=== PATIENT | male | born 1960 | race Caucasian/White ===

== ENCOUNTER 2022-05-01 16:06 | Emergency (ER) | payer BC, SELFPAY ==
[2022-05-01 16:28] VITALS: BP 144/78; PULSE 90; RESP 18; TEMP 36.7; O2SAT 99; BMI 36.5
--- NOTE | 2022-05-01 16:33 | CRLHL7_ITS ---
For Patients: As a result of the Century Cures Act, medical imaging exams and procedure reports are released immediately into your electronic medical record. You may view this report before your referring provider. If you have questions, please contact your health care provider. INDICATION: Pascual`s palsy. Left facial changes. Tongue numbness. TECHNIQUE: Multiplanar multisequence noncontrast MR images acquired through the brain. COMPARISON: None. FINDINGS: The ventricles and sulci are within normal limits for patient age. No mass effect or midline shift. Punctate FLAIR hyperintensity within the posterolateral right frontal white matter, nonspecific. No intracranial hemorrhage or pathologic extra-axial fluid collection. No diffusion restriction to suggest acute infarction. The major arterial flow voids of the skullbase are preserved. The globes are symmetric. The paranasal sinuses are well aerated. The mastoid air cells are clear. IMPRESSION: 1. No acute infarction, mass effect, or intracranial hemorrhage. 2. Punctate FLAIR hyperintensity within the posterolateral right frontal white matter is nonspecific, though most typical for sequelae of migraine headaches or minimal chronic microvascular ischemic changes. Dictated by Sergey Whyte MD @ 05/01/2022 6:05:11 PM (Electronically Signed)
--- NOTE | 2022-05-01 16:34 | ED.GENADULT ---
HPI - General Adult General Time Seen by Provider: 16:34 Date Seen: 05/01/22 Chief complaint: Abdominal Pain Stated complaint: Hard time moving tongue, numbness in bottom lip Time Seen by Provider: 05/01/22 16:29 Source: patient and RN notes reviewed Mode of arrival: ambulatory Limitations: no limitations History of Present Illness HPI narrative: Patient is a 61-year-old male accompanied by his wanting neuro imaging to rule out a stroke. Patient also had episode on and off yesterday where he felt a little chest pressure type sensation. Patient had left facial symptoms develop on April 15, went to the ER on April 16. They saw the ER physician, Neurology was reportedly consulted. He was diagnosed with left Pascual's palsy. Was put on the Valtrex and prednisone which he has completed. He was complaining of numbness over his left lip tongue and roof of mouth and cheek. He was noted to have a left facial droop and blurry vision of his left eye. He is a diabetic. He does endorse that his left eye still feels funny at times. He use using the lubricating ointment at night and drops during the day. He still is having some difficulty drinking. Today he feels like his tongue is having difficulty moving. He reports the tip of it is feeling numb. On examination he points to the center his lip just off center where the lip feels numb. He is wondering if he could be having a heart attack. I reviewed with him that these would not be symptoms of a heart attack. Pascual's palsy typically does not have sensory component but it is possible. We certainly can do neuro imaging to rule out acute tumor or stroke. Will be doing a plain brain MRI. We are nearing the end of our MRI coverage for the day and he will be added on. He also yesterday had episodes maybe lasting 30-45 minutes in the evening where he felt almost up pressure type sensation. He places his fingertips on his chest and presses in. Sometimes it would be sharp but there was no underlying dull sensation. No palpitation, no respiratory change. No symptoms today. He is not had any prior cardiac diagnosis. He is unaware of family history. He does use nicotine products with smoking cigarettes. He is been sober from alcohol for 13 years. Related Data Allergies Allergy/AdvReac Type Severity Reaction Status Date / Time No Known Drug Allergies Allergy Verified 05/01/22 16:30 Review of Systems Status of ROS: Reports: 10 or more systems reviewed and unremarkable except as noted in History and below Exam Const: Vital Signs, click to edit/add: Vital Signs - 24 hr 05/01/22 16:28 Temperature 98.0 F Pulse Rate [Right Pulse Oximeter] 90 Respiratory Rate 18 Blood Pressure [Ri ght Upper Arm] 144/78 H Pulse Oximetry 99 Oxygen Delivery Me thod Room Air Documenting provider has reviewed patient's vital signs: yes Common normals: no apparent distress, oriented x3, no limitations, healthy appearing, alert and well nourished General appearance: cooperative, comfortable, well kempt and well developed HENMT: Common normals: normocephalic, head/scalp atraumatic, hearing grossly normal bilaterally, external ears normal, external nose normal, nasal mucous membranes and turbinates normal, moist oral mucous membranes, oropharynx normal, dentition normal and gingiva normal Head and scalp: normocephalic and atraumatic Nose: external nose normal and nasal mucous membranes and turbinates normal External ear: external ears normal Other: He can raise both of his eyebrows. He can close both eyelids. Does have a blink reflex that is variable on the left. At times it seems like it closes all the way, other times maybe is left open just a little bit. Certainly when ask him to fully closes eyes I do see both eyelids close. He can pull the left corner of his mouth up with smiling, is not as high as the right side. Baseline at rest does have a left facial droop with the corner of his mouth. Tongue does protrude midline. When I take a Q-tip, has normal sensation over his tongue minus maybe the very tip of his tongue. Complains that there is a different pressure sensation or tingly sensation when I touch the very center of his lower lip and just off to the left of that center. There is no asymmetry as far as facial swelling. No erythema or rash. Cerumen in in both canals. Eye: Common normals: PERRL, EOMs intact bilaterally, conjunctivae normal and no scleral icterus General eye: normal appearance of both eyes Conjunctiva: conjunctiva(e) normal Pupil: PERRL Neck & C-Spine: Common normals: full ROM, no lymphadenopathy, supple, no meningeal signs, no JVD and thyroid normal Thyroid: thyroid normal Chest: Common normals: inspection of chest normal Resp: Common normals: normal respiratory effort, no retractions, no use of accessory muscles and clear to auscultation bilaterally Auscultation: clear to auscultation bilaterally Cardio: Common normals: no JVD, regular rate, regular rhythm, S1 normal heart sound, S2 normal heart sound, no gallops, no clicks, no murmurs and no rub Rate: regular rate Rhythm: regular rhythm Heart sounds: S1 normal and S2 normal GI: Common normals: Normal to inspection, nondistended, normoactive bowel sounds present, soft to palpation, non-tender, no hepatosplenomegaly, no masses and no bruits Palpation: soft and no hepatosplenomegaly Neuro: Common normals: oriented x3 Sensorium/orientation: alert Meningeal signs: no meningeal signs Psych: Appearance: well kempt Course Reevaluation(s) Reevaluation #1: Reviewed with them that his noncontrast head MRI is not showing any evidence of any ischemia or stroke. His labs are reassuring, normal troponin. Chest x-ray subsequently come back on over-read is normal as well. He did then tell me that his nose is hurting in the septum area. As he does it he pinches the septum area and pushes the nares in the tip of his nose up. I can find nothing palpably wrong as I palpate down his nose, no visual inspection of the nares. He does have a lot of nose here which does obstruct some of the visualization. I do not see anything alarmingly acute that I am worried about however. He also states that sometimes he is having difficulty swallowing. He seems to be managing secretions here, has been eating at home. Reviewed with them that they should monitor symptoms and follow up in clinic. Time: 18:56 Vital Signs Vital signs: Initial Vital Signs Temperature 98.0 F 05/01/22 16:28 Temperature Source Temporal Artery Scan 05/01/22 16:28 Pulse Rate 90 05/01/22 16:28 Respiratory Rate 18 05/01/22 16:28 Blood Pressure 144/78 H 05/01/22 16:28 Blood Pressure Mean 100 05/01/22 16:28 Pulse Oximetry 99 05/01/22 16:28 Oxygen Delivery Method 05/01/22 16:28 Vital Signs Temperature 98.0 F 05/01/22 16:28 Pulse Rate 90 05/01/22 16:28 Respiratory Rate 18 05/01/22 16:28 Blood Pressure 144/78 H 05/01/22 16:28 Pulse Oximetry 99 05/01/22 16:28 Oxygen Delivery Method 05/01/22 16:28 Temperature 98.0 F 05/01/22 16:28 Pulse Rate 90 05/01/22 16:28 Respiratory Rate 18 05/01/22 16:28 Blood Pressure 144/78 H 05/01/22 16:28 Pulse Oximetry 99 05/01/22 16:28 Oxygen Delivery Method 05/01/22 16:28 Medical Decision Making Lab Data Lab results reviewed: Yes I reviewed the patient's lab results Labs: Lab Results 05/01/22 05/01/22 05/01/22 Range/Units 17:45 17:45 17:45 WBC 11.26 H (4.50-11.00) K/uL RBC 5.65 (4.30-5.90) m/uL Hgb 17.2 (13.5-17.5) gm/dL Hct 51.2 (37.0-53.0) % MCV 91 (80-100) fL MCH 30 (26-34) pg MCHC 34 (32-36) gm/dL RDW Coeff of [place] 13.0 (11.5-15.5) % Plt Count 190 (140-440) K/uL Neut % (Auto) 64.4 (42.0-72.0) % Lymph % (Auto) 24.7 (20-44) % [place] % (Auto) 7.6 (0.0-11.0) % Eos % (Auto) 2.5 (0.0-7.0) % Baso % (Auto) 0.5 (0.0-3.0) % Neut # (Auto) 7.30 H (1.7-7.0) K/uL Lymph # (Auto) 2.80 (0.90-2.90) K/uL [place] # (Auto) 0.90 (0.00-0.90) K/UL Eos # (Auto) 0.30 (0.00-0.50) K/uL Baso # (Auto) 0.10 (0.00-0.30) K/uL Sodium 142 (135-149) mmol/L Potassium 4.0 (3.6-5.1) mmol/L Chloride 111 (96-114) mmol/L Carbon Dioxide 26 (20-32) mmol/L BUN 14 (7-30) mg/dL Creatinine 1.1 (0.5-1.5) mg/dL Estimated Creat Clear 69.09 Estimated GFR 77 ml/min Glucose 76 (60-115) mg/dL Calcium 9.7 (8.4-10.6) mg/dL Total Bilirubin 0.4 (0.1-1.5) mg/dL AST 30 (12-35) U/L ALT 52 H (4-50) U/L Alkaline Phosphatase 93 (40-150) U/L C-Reactive Protein < 0.5 L (0.5-1.0) mg/dL Total Protein 6.7 (6.0-8.3) g/dL Albumin 4.2 (3.3-5.0) g/dL POC Troponin I 0.00 L (0.01-0.04) ng/ml Imaging Data MRI - head: Attestation: I have reviewed the pertinent imaging results. Radiologist's impression: Patient: ANDREW HART Facility:?[facility] Patient ID:?[id number] Site Patient ID:?[id number]. Site :?[id number] Study:?MRI Head W/O-05/01/2022 5:30:53 PM Ordering Physician:?Manas Alamo Final Report: INDICATION: Pascual`s palsy. Left facial changes. Tongue numbness. TECHNIQUE: Multiplanar multisequence noncontrast MR images acquired through the brain. COMPARISON: None. FINDINGS: The ventricles and sulci are within normal limits for patient age. No mass effect or midline shift. Punctate FLAIR hyperintensity within the posterolateral right frontal white matter, nonspecific. No intracranial hemorrhage or pathologic extra-axial fluid collection. No diffusion restriction to suggest acute infarction. The major arterial flow voids of the skullbase are preserved. The globes are symmetric. The paranasal sinuses are well aerated. The mastoid air cells are clear. IMPRESSION: 1. No acute infarction, mass effect, or intracranial hemorrhage. 2. Punctate FLAIR hyperintensity within the posterolateral right frontal white matter is nonspecific, though most typical for sequelae of migraine headaches or minimal chronic microvascular ischemic changes. Dictated by Sergey Whyte MD @ 05/01/2022 6:05:11 PM (Electronic Signature) Chest x-ray: Attestation: I have reviewed the pertinent imaging results. My impression: No acute change a my preliminary read. Radiologist's impression: Patient: ANDREW HART Facility:?[facility] Patient ID:?[id number] Site Patient ID:?[id number]. Site :?[id number] Study:?XRay Chest PORTABLE-05/01/2022 5:44:53 PM Ordering Physician:Dwain Alamo Final Report: INDICATION: Chest pain. TECHNIQUE: Chest 1 views. COMPARISON: None. FINDINGS: Lungs: Clear lungs. No consolidation. Pleura: No pleural effusion or pneumothorax. Heart and Mediastinum: The cardiomediastinal silhouette is normal. The vessels are unremarkable. Bones: Unremarkable. IMPRESSION: No acute cardiopulmonary disease. Dictated by Fidencio Peterson MD @ 05/01/2022 6:32:09 PM (Electronic Signature) ECG Data Attestation: I personally reviewed and interpreted this ECG as follows: (Sinus rhythm, Q-waves anterior precordial leads. No ST/T-wave changes in these leads. QT corrected 4 in 10 milliseconds.) Critical Care Time Critical Care Time Critical Care Time: No Discharge Plan Discharge Clinical Impression: Pascual's palsy, Chest discomfort Condition: Stable Instructions: Chest Pain (ED), Pascual Palsy (ED) Additional Instructions: Need to schedule a follow-up with her primary care provider as soon as you are able. If you are having ongoing issues with Pascual's palsy, may need to see ENT and/or Neurology depending on the specific symptom. If your left eye a is continuing to irritate you, would recommend seen Optometry or Ophthalmology just to have them make sure there were no complications of the eye with Pascual's palsy. You do need to discuss your chest symptoms that you had yesterday with your primary care provider. Cardiac stress testing needs to be considered if you have never done so, will ultimately defer to discussion with your primary care provider on this. You do need to continue using eyedrops and lubrication of the left eye. Note chest x-ray was read by Radiology as normal/negative. Activity Level: Activity as Tolerated Follow Up/Referrals: Adalberto Fiore MD [Staff Physician] - Stand Alone Forms: Head Held High Info Instructions
--- NOTE | 2022-05-01 17:34 | CRLHL7_ITS ---
For Patients: As a result of the Cures Act, medical imaging exams and procedure reports are released immediately into your electronic medical record. You may view this report before your referring provider. If you have questions, please contact your health care provider. INDICATION: Chest pain. TECHNIQUE: Chest 1 views. COMPARISON: None. FINDINGS: Lungs: Clear lungs. No consolidation. Pleura: No pleural effusion or pneumothorax. Heart and Mediastinum: The cardiomediastinal silhouette is normal. The vessels are unremarkable. Bones: Unremarkable. IMPRESSION: No acute cardiopulmonary disease. Dictated by Fidencio Peterson MD @ 05/01/2022 6:32:09 PM (Electronically Signed)
[2022-05-01 17:53] LABS: Basophils Percent Auto 0.5 % (0.0-3.0); Eosinophils Percent Auto 2.5 % (0.0-7.0); Hematocrit 51.2 % (37.0-53.0); Hemoglobin* 17.2 gm/dL (13.5-17.5); Immature Granulocytes Pct Auto 0.3 %; Lymphocytes Percent Auto 24.7 % (20-44); Mean Corpuscular HGB Conc 34 gm/dL (32-36); Mean Corpuscular Hemoglobin 30 pg (26-34); Mean Corpuscular Volume 91 fL (80-100); Monocytes Percent Auto 7.6 % (0.0-11.0); Neutrophils Percent Auto 64.4 % (42.0-72.0); Platelet Count* 190 K/uL (140-440); Red Blood Count 5.65 m/uL (4.30-5.90); White Blood Count* 11.26 K/uL (4.50-11.00)
[2022-05-01 17:57] LABS: Slide Review Reflex No
[2022-05-01 18:00] VITALS: O2SAT 98
[2022-05-01 18:19] LABS: Albumin* 4.2 g/dL (3.3-5.0); Chloride* 111 mmol/L (96-114); Sodium* 142 mmol/L (135-149)
[2022-05-01 18:21] LABS: Creatinine* 1.1 mg/dL (0.5-1.5); Est. Creatinine Clearance* 69.09; Estimated Glomerular Filt Rate 77 ml/min
[2022-05-01 18:22] LABS: Alanine Aminotransferase* 52 U/L (4-50); Alkaline Phosphatase* 93 U/L (40-150); Aspartate Amino Transferase* 30 U/L (12-35); Bilirubin Total* 0.4 mg/dL (0.1-1.5); Blood Urea Nitrogen* 14 mg/dL (7-30); Carbon Dioxide* 26 mmol/L (20-32); Total Protein* 6.7 g/dL (6.0-8.3)
[2022-05-01 18:23] LABS: Calcium* 9.7 mg/dL (8.4-10.6); Glucose* 76 mg/dL (60-115)
[2022-05-01 18:27] LABS: C Reactive Protein* < 0.5 mg/dL (0.5-1.0)
[2022-05-01 19:00] VITALS: BP 144/78; PULSE 90; RESP 18; TEMP 36.7; O2SAT 99
[2022-05-01 19:14] VITALS: BP 144/78; PULSE 90; RESP 18; TEMP 36.7
== END 2022-05-01 19:15 | disposition home or self-care (01) ==
PROVIDERS: Emergency Provider Family Medicine; PCP Family Medicine
DX: G51.0 Bell's palsy (principal); R07.89 Other chest pain
CPT/HCPCS: 36415; 70551; 71045; 80053; 84484; 85025; 86140; 93005; 94761; 99284; 99285